=== PATIENT | male | born 1995 | race Caucasian/White ===

== ENCOUNTER 2019-01-28 17:58 | Emergency (ER) | payer SELFPAY ==
[2019-01-28 18:18] VITALS: BP 140/80; PULSE 72; RESP 16; O2SAT 100; BMI 26.7
[2019-01-28] MEDS: KETOROLAC 60 MG/2 ML VIAL 30 MG IM (19:33)
[2019-01-28] MEDS: diazePAM 5 MG TABLET PO (19:33)
--- NOTE | 2019-01-28 19:42 | ED_ITS ---
HPI - Back Pain/Injury <WILLIE Nieto - Last Filed: 01/28/19 21:41> General Chief Complaint: Back Pain/Injury Stated Complaint: pain in back left leg, x week and a half Time Seen by Provider: 01/28/19 19:03 Source: patient Mode of arrival: ambulatory Limitations: no limitations History of Present Illness HPI Narrative: 24-year-old male with history of a pinched nerve and sciatica, p resents emergency department today complaining left leg pain. He states the pain is a sharp shooting pain that starts in his back and radiates down his left leg. He was wrestling with 1 of his friends when he accidentally hit his back when the pain started about a week ago. He states the episodes of pain usually last about 3 days however this was longer. He states he has been taking ibuprofen. Patient states he feels like he has weakness in his left leg due to the pain. Patient states the pain is worse when he moves his leg especially during flexion. Patient denies any fevers, chest pain, shortness of breath, saddle paresthesias, loss of bowel or bladder function, loss of sensation in the leg, nausea, vomiting, or other concerning symptoms. Related Data Home Medications Medication Instructions Recorded Confirmed MULTIVITAMIN (One Daily 1 tab PO BID #0 06/30/11 Multivitamin) Previous Rx's Medication Instructions Recorded fluoxetine 10 mg PO QAM #60 07/17/11 ibuprofen 600 mg PO Q6HP PRN #30 tab 12/16/15 prednisone 50 mg PO AMCC 5 Days #0 tab 12/16/15 ketorolac 10 mg PO Q6HP PRN #15 tab 03/14/16 methocarbamol 500 mg PO QIDP PRN #14 tab 03/14/16 cyclobenzaprine 10 mg PO TID #14 tab 01/28/19 tramadol 50 mg PO BID PRN #10 tab 01/28/19 Allergies Allergy/AdvReac Type Severity Reaction Status Date / Time varicella virus vaccine live Allergy Unknown Unverified 08/26/17 13:09 [VARICELLA VIRUS VACCINE LIVE] Review of Systems <WILLIE Nieto - Last Filed: 01/28/19 21:41> Review of Systems Narrative: REVIEW OF SYSTEMS: GENERAL: Denies fever or chills. HENT: No head trauma. EYES: No double vision or vision loss. CARDIOVASCULAR: No chest pain or syncope. RESPIRATORY: No shortness of breath or cough. GASTROINTESTINAL: No nausea, vomiting, diarrhea, or constipation. GENITOURINARY: No flank pain or dysuria. MUSCULOSKELETAL: Complains of left back and leg pain, see HPI. INTEGUMENTARY: No rash, lesions, or pruritus. NEURO: Sharp shooting pain down like, see HPI. PSYCH: No behavior or mood changes. PFSH <WILLIE Nieto - Last Filed: 01/28/19 21:41> Medical History Sciatica (Acute) Social History Smoking Status: Never smoker Social History Smoking Status: Never smoker Exam <WILLIE Nieto - Last Filed: 01/28/19 21:41> Initial Vital Signs Initial Vital Signs: Vital Signs Pulse Rate 72 01/28/19 18:18 Respiratory Rate 16 01/28/19 18:18 Blood Pressure 140/80 01/28/19 18:18 Pulse Oximetry 100 01/28/19 18:18 PHYSICAL EXAMINATION: GENERAL: Well groomed, alert, and cooperative. Answers questions promptly and appropriately. Vital signs noted. HENT: Normocephalic, atraumatic. EYES: Symmetrical, sclera white, no periorbital swelling. CARDIOVASCULAR: S1 and S2 sounds normal. Regular rate and rhythm, no murmurs, clicks, or bruits. No pedal edema. RESPIRATORY: Normal respiratory rate, trachea midline, airway patent. No stridor, nasal flaring or accessory muscle use. Lungs are clear in all duffy. MUSCULOSKELETAL: Significant tenderness to lumbar paraspinal muscles especially on the left, palpation to this area increases symptoms to left leg including the shooting pain. Positive straight leg test to the left lower limb. Equal strength to lower limbs bilaterally against resistance-although patient does report increased pain to left leg. Normal gait and coordination. Equal tone and mass bilaterally. No deformities. EXTREMITIES: CMS intact. 2+ posterior tibialis pulses that are equal bilaterally. SKIN: Warm, dry, soft, appropriate color for ethnicity. No lesions, rashes, or wounds. NEURO: Alert and Oriented X 3. No sensory deficits. PSYCH: Appropriate affect and mood. <DO Dustin Velasco Last Filed: 01/28/19 23:22> Initial Vital Signs Initial Vital Signs: Vital Signs Pulse Rate 72 01/28/19 18:18 Respiratory Rate 16 01/28/19 18:18 Blood Pressure 140/80 01/28/19 18:18 Pulse Oximetry 100 01/28/19 18:18 Course <WILLIE Nieto - Last Filed: 01/28/19 21:41> Course Course Narrative: Patient was given Toradol and Valium in the emergency department, he states that this has improved his symptoms a bit. Patient is here with his who is able to drive him home. We discussed how an x-ray would not help with his diagnosis or changes plan of care. Orders Ordered: Discontinued Medications Diazepam (Valium) 5 mg PO NOW ONE Stop: 01/28/19 19:13 Last Admin: 01/28/19 19:33 Dose: 5 mg Documented by: JENNIFER Ketorolac Tromethamine (Toradol) 30 mg IM NOW ONE Stop: 01/28/19 19:13 Last Admin: 01/28/19 19:33 Dose: 30 mg Documented by: JENNIFER Vital Signs Vital signs: Vital Signs - 8 hr 01/28/19 18:18 01/28/19 19:48 Pulse Rate 72 70 Respiratory Rate 16 16 Blood Pressure 140/80 132/74 Pulse Oximetry 100 99 <Pawan Alaniz DO - Last Filed: 01/28/19 23:22> Orders Ordered: Discontinued Medications Diazepam (Valium) 5 mg PO NOW ONE Stop: 01/28/19 19:13 Last Admin: 01/28/19 19:33 Dose: 5 mg Documented by: JENNIFER Ketorolac Tromethamine (Toradol) 30 mg IM NOW ONE Stop: 01/28/19 19:13 Last Admin: 01/28/19 19:33 Dose: 30 mg Documented by: JENNIFER Vital Signs Vital signs: Vital Signs - 8 hr 01/28/19 18:18 01/28/19 19:48 Pulse Rate 72 70 Respiratory Rate 16 16 Blood Pressure 140/80 132/74 Pulse Oximetry 100 99 MDM - Back Pain/Injury <WILLIE Nieto - Last Filed: 01/28/19 21:41> Medical Records Attestation: I reviewed the patient's medical records. Lab Data Attestation: I reviewed the patient's lab results. MDM Narrative Medical decision making narrative: Differential includes sciatica (most likely due to history, it of straight leg test, description of pain-I suspect this is probably an acute exacerbation), less likely fracture due to lack of tenderness on palpation of spinous processes and description of pain shooting down his leg. Less likely cauda equina as patient denies hip saddle paresthesias or loss of bowel or bladder control. Less likely spinal abscess due to lack of recent injections, normal neuro exam, equal strength to lower extremities. Discharge Plan Departure Patient Disposition: Home Clinical Impression: Back spasm Back pain Qualifiers: Back pain location: low back pain Chronicity: acute Back pain laterality: left Sciatica presence: with sciatica Sciatica laterality: sciatica of left side Qualified Code(s): M54.42 - Lumbago with sciatica, left side Discharge Date/Time: 01/28/19 19:49 Instructions: DI for Low Back Pain, DI for Back Spasm Activity Restrictions/Additional Instructions: Thank you for entrusting me with your care today. As discussed, believe your pain is caused by your pinched nerve, an x-ray would not help us care for you today. It is important may follow up with the primary care provider for further discussion about more testing. I have prescribed you a muscle relaxer, this can make you drowsy so do not drive with this medication. Return to the emergency department if you develops chest pain, shortness of breath, loss of bowel or bladder control, numbness or tingling in her pelvis area, high fevers, or other concerning symptoms. Prescriptions: New cyclobenzaprine 10 mg tablet 10 mg PO TID Qty: 14 RF: 0 tramadol 50 mg tablet 50 mg PO BID PRN (Reason: pain) Qty: 10 RF: 0 No Action MULTIVITAMIN (One Daily Multivitamin) 1 tab PO BID Qty: 0 RF: 0 fluoxetine 10 MG tablet 10 mg PO QAM Qty: 60 RF: 0 prednisone 50 MG tablet 50 mg PO AMCC 5 Days Qty: 0 RF: 0 ibuprofen 600 MG tablet 600 mg PO Q6HP PRNQty: 30 RF: 0 methocarbamol 500 MG tablet 500 mg PO QIDP PRNQty: 14 RF: 0 ketorolac 10 MG tablet 10 mg PO Q6HP PRNQty: 15 RF: 0 <Pawan Alaniz, DO - Last Filed: 01/28/19 23:22> Sign Out Provider Sign Out Attestation: I was available for consultation during this patient's emergency department encounter
--- NOTE | 2019-01-28 19:47 | PC.NURSE ---
Pt seen and assessed by KAT Torres in 3A. c/o back pain x 2 days and down leg--describing sciatica type sx. medicated by Keri GUTIERREZ. pt waiting in 3A for discharge.
[2019-01-28 19:48] VITALS: BP 132/74; PULSE 70; RESP 16; O2SAT 99
== END 2019-01-28 19:49 | disposition home or self-care (01) ==
PROVIDERS: Emergency Provider Nurse Practitioner
DX: M54.42 Lumbago with sciatica, left side (principal)
CPT/HCPCS: 96372; 99282; 99283; J1885

== ENCOUNTER 2020-07-03 17:13 | Emergency (ER) | payer OTHER, SELFPAY ==
[2020-07-03 17:17] VITALS: BP 140/69; PULSE 87; RESP 18; TEMP 37.3; O2SAT 99
--- NOTE | 2020-07-03 17:24 | DI.RAD.S_ITS ---
PROCEDURE: XR THORACIC SPINE 3V INDICATIONS: slip and fall, landed on back. c/o pain T 11/12 area; TECHNIQUE: Three views of the thoracic spine were acquired. COMPARISON: None. FINDINGS: Bones: No fractures or dislocations. No suspicious bony lesions. 12 pairs of ribs are noted, and appear intact where visualized. Soft tissues: No paravertebral stripe thickening. IMPRESSION: Intact thoracic spine. Dictated by: Alexandra Kessler M.D. on 07/03/2020 at 17:03 Approved by: Alexandra Ksesler M.D. on 07/03/2020 at 17:04
--- NOTE | 2020-07-03 17:24 | DI.RAD.S_ITS ---
PROCEDURE: XR LUMBAR SPINE 2-3V INDICATIONS: slip and fall, landed on back. c/o pain T 11/12 area; TECHNIQUE: Two views of the lumbar spine were acquired. COMPARISON: None. FINDINGS: Bones: Six [id number] vertebrae are present. There is normal bony alignment. No vertebral body compression fractures. No suspicious bony lesions. Soft tissues: Overlying bowel gas pattern is normal. No suspicious soft tissue calcifications. IMPRESSION: Intact lumbar spine. Dictated by: Alexandra Kessler M.D. on 07/03/2020 at 17:01 Approved by: Alexandra Kessler M.D. on 07/03/2020 at 17:02
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
--- NOTE | 2020-07-03 19:42 | ED.BACK ---
HPI - Back Pain/Injury General Chief Complaint: Back Pain/Injury Stated Complaint: Fell, Landed On Back, Rt Leg Pain Time Seen by Provider: 07/03/20 19:31 Source: patient Mode of arrival: Ambulatory Limitations: no limitations History of Present Illness HPI Narrative: Patient is a 25-year-old male not on anticoagulation who has had lumbar spine degenerative disc disease with right-sided radiculopathy in the past to his here because he states that this morning he was walking out on his deck where he slipped and fell landing on his back. Since that time he has had what he describes as ?pressure? in the middle of his back and also a ?heaviness? in his left leg. He denies any right leg symptoms despite what the stated complaint was. Is not having any urinary or bowel symptoms. Has not tried anything for his symptoms prior to arrival. Related Data Previous Rx's Medication Instructions Recorded cyclobenzaprine 5 mg tablet 5 mg PO TID PRN #30 tab 03/01/20 Allergies Allergy/AdvReac Type Severity Reaction Status Date / Time varicella virus vaccine live Allergy Unknown Unverified 03/01/20 09:20 [VARICELLA VIRUS VACCINE LIVE] Review of Systems Constitutional Constitutional: Denies fever(s) and Denies headache(s) ENT Ears, Nose, Mouth, and Throat: Denies headache(s) Cardiovascular Cardiovascular: Denies chest pain and Denies dyspnea Respiratory Respiratory: Denies dyspnea Gastrointestinal Gastrointestinal: Denies abdominal pain Musculoskeletal Musculoskeletal: Reports back pain Integumentary/Breasts Skin/Breast: Denies lesions and Denies rash Neurologic Neurologic: Denies behavioral changes and Denies headache(s) Comments: Heaviness and left leg Psychiatric Psychiatric: Denies behavioral changes Hematologic/Lymphatic On Anticoagulants: No Allergic/Immunologic Allergic/Immunologic: Denies urticaria Patient History Medical History Sciatica Social History Smoking Status: Never smoker alcohol intake: current (Very infrequent. ) Smoking Status: Never smoker alcohol intake frequency: 0-2 drinks per day Substance Use Type: does not use Exam Initial Vital Signs Initial Vital Signs: Vital Signs Temperature 99.1 F 07/03/20 17:17 Pulse Rate 87 07/03/20 17:17 Respiratory Rate 18 07/03/20 17:17 Blood Pressure 140/69 07/03/20 17:17 Pulse Oximetry 99 07/03/20 17:17 Const General: cooperative and comfortable Limitations: mental status not altered HENMT Head: normal to inspection and normocephalic Resp Effort & Inspection: normal respiratory effort Cardio Rate: regular rate Back/Spine/Pelvis Thoracic/Lumbar Spine: paraspinal tenderness (Left paraspinal), thoracic spinal tenderness and lumbar spinal tenderness Skin Lesions: no lesions Rashes: no rashes Neuro General: patient alert, patient awake and patient oriented x3 Cognition: normal cognition Speech: speech normal Extrem General: normal to inspection and capillary refill normal Psych Appearance: grossly normal and well kempt Course Orders Ordered: ED Orders 07/03/20 17:24 XR lumbar spine 2-3V Stat XR thoracic spine 3V Stat Vital Signs Vital signs: Vital Signs - 8 hr 07/03/20 17:17 07/03/20 19:53 Temperature 99.1 F Pulse Rate 87 66 Respiratory Rate 18 14 Blood Pressure 140/69 107/55 L Pulse Oximetry 99 99 MDM - Back Pain/Injury Imaging Data Lumbar spine x-ray: Radiologist's Impression: W[place]zek[place],John Giraldo 25 M [address] [id number] ReportSigned Patient: John Wagner DMR#: [id number]: 1995Acct:[id number]/Sex: 25 / MDate of Service: 07/03/20Loc: EDAccession Number: [id number] Procedure: XR lumbar spine 2-3V Ordering Provider: Mraissa Ga D.O. PROCEDURE: XR LUMBAR SPINE 2-3V INDICATIONS: slip and fall, landed on back. c/o pain T 11/12 area; TECHNIQUE: Two views of the lumbar spine were acquired. COMPARISON: None. FINDINGS: Bones: Six [id number] vertebrae are present. There is normal bony alignment. No vertebral body compression fractures. No suspicious bony lesions. Soft tissues: Overlying bowel gas pattern is normal. No suspicious soft tissue calcifications. IMPRESSION: Intact lumbar spine. Dictated by: Alexandra Kessler M.D. on 07/03/2020 at 17:01 Approved by: Alexandra Kessler M.D. on 07/03/2020 at 17:02 Thoracic spine x-ray: Radiologist's Impression: [address] [id number] ReportSigned Patient: John Wagner [facility]#: [id number]: 1995Acct:[id number]/Sex: 25 / MDate of Service: 07/03/20Loc: EDAccession Number: [id number] Procedure: XR thoracic spine 3V Ordering Provider: Marissa Ga D.O. PROCEDURE: XR THORACIC SPINE 3V INDICATIONS: slip and fall, landed on back. c/o pain T 11/12 area; TECHNIQUE: Three views of the thoracic spine were acquired. COMPARISON: None. FINDINGS: Bones: No fractures or dislocations. No suspicious bony lesions. 12 pairs of ribs are noted, and appear intact where visualized. Soft tissues: No paravertebral stripe thickening. IMPRESSION: Intact thoracic spine. Dictated by: Alexandra Kessler M.D. on 07/03/2020 at 17:03 Approved by: Alexandra Kessler M.D. on 07/03/2020 at 17:04 [facility] Narrative Medical decision making narrative: His x-rays are unremarkable. Is not having any bowel or urinary symptoms. He does have midline tenderness however also has left-sided paraspinal tenderness. No bruising over the area. Low suspicion for cauda equina based on his presentation today. I do suspect this is muscular from his fall. Did discuss conservative treatments at home. He was given return precautions and follow-up instructions. He expressed understanding and agreement. Discharge Plan Departure Patient Disposition: Home Clinical Impression: Back pain Instructions: DI for Low Back Pain Activity Restrictions/Additional Instructions: Recommend that you continue with conservative treatments to include anti-inflammatories and heat/ice and massage and light stretching. If your symptoms continue recommend you contact your primary provider for follow-up. Return to the emergency department for any new or worsening symptoms Prescriptions: No Action cyclobenzaprine 5 mg tablet 5 mg PO TID PRN (Reason: muscle spasm) Qty: 30 RF: 0 Referrals: Juan Elena MD [Primary Care Provider] - Stand Alone Forms: Work Release Note
[2020-07-03 19:53] VITALS: BP 107/55; PULSE 66; RESP 14; O2SAT 99
== END 2020-07-03 19:53 | disposition home or self-care (01) ==
PROVIDERS: Emergency Provider Emergency Medicine; PCP Family Medicine
DX: M54.9 Dorsalgia, unspecified (principal); W01.0XXA Fall on same level from slipping, tripping and stumbling without subsequent striking against object, initial encounter
CPT/HCPCS: 72072; 72100; 99283

== ENCOUNTER 2020-10-01 20:40 | Emergency (ER) | payer OTHER, SELFPAY ==
[2020-10-01 20:55] VITALS: BP 132/80; PULSE 62; RESP 14; TEMP 36.6; O2SAT 99
--- NOTE | 2020-10-01 22:07 | ED.BACK ---
HPI - Back Pain/Injury General Chief Complaint: Back Pain/Injury Stated Complaint: Lower left back pain severe x2 day Time Seen by Provider: 10/01/20 20:43 Source: patient Mode of arrival: Ambulatory Limitations: no limitations History of Present Illness HPI Narrative: Patient is a 25-year-old male who over the weekend was playing a [employer] golf tournament and on Thursday started to have left-sided back discomfort. He has had discomfort in this area in the past. Has seen his primary doctor. Has been getting acupuncture which does seem to improve his symptoms somewhat. He states he has tried the anti-inflammatories at home with minimal relief. No radiation down to his legs. No urinary symptoms. No fevers. No saddle anesthesia. Related Data Previous Rx's Medication Instructions Recorded cyclobenzaprine 5 mg tablet 5 mg PO TID PRN #30 tab 03/01/20 cyclobenzaprine 10 mg PO TID PRN #10 tab 10/01/20 Allergies Allergy/AdvReac Type Severity Reaction Status Date / Time varicella virus vaccine live Allergy Unknown Unverified 09/03/20 08:48 [VARICELLA VIRUS VACCINE LIVE] Review of Systems Constitutional Constitutional: Denies fever(s) Musculoskeletal Musculoskeletal: Reports back pain and Denies tingling Integumentary/Breasts Skin/Breast: Denies rash Neurologic Neurologic: Denies tingling and Denies paresthesias Hematologic/Lymphatic On Anticoagulants: No Allergic/Immunologic Allergic/Immunologic: Denies urticaria Patient History Medical History Sciatica Social History Smoking Status: Never smoker alcohol intake: current (Very infrequent. ) Smoking Status: Never smoker alcohol intake frequency: 0-2 drinks per day Substance Use Type: does not use Exam Initial Vital Signs Initial Vital Signs: Vital Signs Temperature 97.9 F 10/01/20 20:55 Pulse Rate 62 10/01/20 20:55 Respiratory Rate 14 10/01/20 20:55 Blood Pressure 132/80 10/01/20 20:55 Pulse Oximetry 99 10/01/20 20:55 Const General: cooperative and comfortable Limitations: mental status not altered HENMT Head: normal to inspection and normocephalic Back/Spine/Pelvis Thoracic/Lumbar Spine: paraspinal tenderness (Left thoracolumbar), No thoracic spinal tenderness and No lumbar spinal tenderness Skin Lesions: no lesions Rashes: no rashes Neuro General: patient alert and patient awake Cognition: normal cognition Speech: speech normal Extrem General: capillary refill normal Psych Appearance: grossly normal and well kempt Course Orders Ordered: Discontinued Medications Hydrocodone Bitart/Acetaminophen (Hydrocodone/Acet 5/325 Prepack) 1 bottle MISC SEEINSTR ONE Stop: 10/01/20 22:45 Last Admin: 10/01/20 22:51 Dose: 1 bottle Documented by: MARLO Cyclobenzaprine HCl (Cyclobenzaprine 10 Mg Prepack) 1 bottle MISC SEEINSTR ONE Stop: 10/01/20 22:45 Last Admin: 10/01/20 22:51 Dose: 1 bottle Documented by: MARLO Vital Signs Vital signs: Vital Signs - 8 hr 10/01/20 20:55 10/01/20 22:55 Temperature 97.9 F Pulse Rate 62 76 Respiratory Rate 14 18 Blood Pressure 132/80 143/74 H Pulse Oximetry 99 97 [facility] - Back Pain/Injury Lab Data Attestation: I reviewed the patient's lab results. Labs: Urine Dip Bedside Urine Glucose Negative Bedside Urine Bilirubin - Negative Bedside Urine Ketone - Negative Urine Specific [place] 1.030 Bedside Urine Occult Blood - Negative Bedside Urine pH 6.0 Bedside Urine Protein - Negative Bedside Urine Urobilinogen - Negative Bedside Urine Nitrite - Negative Bedside Urine Leukocytes - Negative Esterase [facility] Narrative Medical decision making narrative: Urinalysis is unremarkable. His symptoms are paraspinal on the left thoracolumbar region in the erector spinae muscles. He is not having any sciatic like symptoms. Low suspicion for cauda equina. I do suspect this is muscular given the fact that he has been participating in a sporting event over the weekend and how he describes his symptoms. Will send home with muscle relaxers. Feel we can hold on radiologic studies. He was given return precautions and follow-up instructions. He expressed understanding and agreement. Discharge Plan Departure Patient Disposition: Home Clinical Impression: Lower back pain Instructions: DI for Low Back Pain Activity Restrictions/Additional Instructions: I recommend that you stay as active as possible. You can use heat/ice. I also recommend continuing with the anti-inflammatories. Return to the emergency department for any new or worsening symptoms Prescriptions: New cyclobenzaprine 10 mg tablet 10 mg PO TID PRN (Reason: muscle spasm) Qty: 10 RF: 0 No Action cyclobenzaprine 5 mg tablet 5 mg PO TID PRN (Reason: muscle spasm) Qty: 30 RF: 0 Referrals: Juan Elena MD [Primary Care Provider] -
[2020-10-01] MEDS: HYDROCODONE/ACET 5/325 PREPACK 1 BOTTLE MISC (22:51)
[2020-10-01] MEDS: CYCLOBENZAPRINE 10 MG PREPACK 1 BOTTLE MISC (22:51)
[2020-10-01 22:55] VITALS: BP 143/74; PULSE 76; RESP 18; O2SAT 97
== END 2020-10-01 22:56 | disposition home or self-care (01) ==
PROVIDERS: Emergency Provider Emergency Medicine; PCP Family Medicine
DX: M54.5 Low back pain (principal)
CPT/HCPCS: 81003; 99281; 99283

== ENCOUNTER → 2023-06-08 10:23 | Outpatient (CLI) | payer OTHER, SELFPAY ==
--- NOTE | 2023-06-08 10:30 | DI.RAD.S_ITS ---
PROCEDURE: XR LUMBAR SPINE 2-3V INDICATIONS: Back Pain TECHNIQUE: 3 views of the lumbar spine were acquired. COMPARISON: [facility], , XR LUMBAR SPINE 2-3V, 07/03/2020, 17:28. FINDINGS: Bones: 5 [id number] vertebrae are present. There is normal bony alignment. No vertebral body compression fractures. No suspicious bony lesions. Facet joints in the lower lumbar spine associated with a retrolisthesis at L4-5 Soft tissues: Overlying bowel gas pattern is normal. No suspicious soft tissue calcifications. IMPRESSION: Degenerative L4-5 retrolisthesis Approved by: Javon Echeverria M.D. on 06/08/2023 at 19:05
== END ==
LOC: RAD 10:24
PROVIDERS: PCP Family Medicine; Referring Provider Family Medicine; Visit Provider Family Medicine
DX: M54.41 Lumbago with sciatica, right side (principal); M43.16 Spondylolisthesis, lumbar region; G89.29 Other chronic pain
CPT/HCPCS: 72100

== ENCOUNTER → 2023-06-22 15:28 | Outpatient (CLI) | payer OTHER, SELFPAY ==
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
== END ==
PROVIDERS: PCP Family Medicine; Referring Provider Family Medicine; Visit Provider Family Medicine
DX: M47.816 Spondylosis without myelopathy or radiculopathy, lumbar region (principal); M47.817 Spondylosis without myelopathy or radiculopathy, lumbosacral region; M51.36 Other intervertebral disc degeneration, lumbar region; M51.37 Other intervertebral disc degeneration, lumbosacral region; M48.061 Spinal stenosis, lumbar region without neurogenic claudication; M48.07 Spinal stenosis, lumbosacral region; M54.50 Low back pain, unspecified
CPT/HCPCS: 72148

== ENCOUNTER 2025-02-16 18:17 | Emergency (ER) | payer OTHER, SELFPAY ==
[2025-02-16 18:24] VITALS: BP 138/74; PULSE 79; RESP 16; TEMP 36.9; O2SAT 99; BMI 32.5
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
[2025-02-16] MEDS: ACETAMINOPHEN 325 MG TABLET 975 MG PO (18:37)
[2025-02-16] MEDS: IBUPROFEN 400 MG TABLET 800 MG PO (18:37)
[2025-02-16 20:18] VITALS: BP 122/81; PULSE 73; RESP 20; O2SAT 99
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
== END 2025-02-16 23:50 | disposition home or self-care (01) ==
PROVIDERS: Emergency Provider Emergency Medicine; PCP Family Medicine
DX: S46.811A Strain of other muscles, fascia and tendons at shoulder and upper arm level, right arm, initial encounter (principal); S20.219A Contusion of unspecified front wall of thorax, initial encounter; V89.2XXA Person injured in unspecified motor-vehicle accident, traffic, initial encounter
CPT/HCPCS: 71100; 73030; 73502; 99283